=== PATIENT | male | born 2000 | race Caucasian/White ===

== ENCOUNTER 2022-07-09 19:27 | Emergency (ER) | payer MEDICAID ==
[~2022-07-09] VITALS: Ht 180.3 cm; Wt 113.5 kg
[2022-07-09] MEDS ORDERED: BACITRACIN ZINC OINT UDPKT TOP ONE (22:15)
[2022-07-09] MEDS ORDERED: TETANUS, DIPHTHERIA, PERTUSSIS VAC/PF 0.5ML (>10YR OLD) IM ONE (22:15)
[2022-07-09] MEDS ORDERED: AMOX1TAB16 MT (22:16)
[2022-07-09 23:00] VITALS: BP 112/78
== END 2022-07-09 23:05 | disposition home or self-care (01) ==
LOC: ER 19:27
DX: S51.852A Open bite of left forearm, initial encounter (principal); S51.851A Open bite of right forearm, initial encounter; W54.0XXA Bitten by dog, initial encounter; Y93.89 Activity, other specified; Y92.89 Other specified places as the place of occurrence of the external cause; Y99.8 Other external cause status
CPT/HCPCS: 90471; 90715; 99283; Z7610